=== PATIENT | male | born 1975 | race Caucasian/White ===

== ENCOUNTER 2017-02-10 19:24 | Emergency (ER) | payer OTHER | END 2017-02-10 21:14 | disposition home or self-care (01) | LOC: ER 19:24 | DX: L50.9 Urticaria, unspecified (principal); F41.9 Anxiety disorder, unspecified; Z86.19 Personal history of other infectious and parasitic diseases; F31.9 Bipolar disorder, unspecified; I10 Essential (primary) hypertension; F17.210 Nicotine dependence, cigarettes, uncomplicated; Z88.6 Allergy status to analgesic agent; Z88.8 Allergy status to other drugs, medicaments and biological substances; Z91.012 Allergy to eggs; Z79.899 Other long term (current) drug therapy | CPT/HCPCS: 96374; 96375; 99070; 99282-25; J2930 ==